=== PATIENT | female | born 1945 | race African-American/Black ===

== ENCOUNTER 2021-07-03 08:40 | Day surgery (SDC) | payer OTHER ==
--- NOTE | 2021-06-29 12:48 | RAD REPORT ---
EXAM DESCRIPTION: RAD - Chest Pa And Lat (2 Views) - 06/29/2021 12:41 pm CLINICAL HISTORY: Pre op COMPARISON: No comparisons FINDINGS: Lines: Left subclavian approach Port-A-Cath with tip overlying the SVC. Lungs: No evidence of edema or pneumonia. Pleural: No significant pleural effusions or pneumothorax. Cardiac: The heart size is within normal limits. Bones: No acute fractures. Bridging osteophytes in the spine. Other: IMPRESSION: No acute cardiopulmonary disease.
[2021-06-29 12:59] LABS: Hematocrit 42.5 % (36.0-45.0); Lymphocytes % 46.3 % (15.3-44.8); MPV 8.2 fL (7.6-11.3); RBC Red Blood Cell Count 5.27 M/uL (3.86-4.86)
[2021-06-29 13:10] LABS: Potassium 3.5 mmol/L (3.5-5.1)
[2021-06-29 13:50] LABS: Blood Morphology Comment NOT SEEN (NOT SEEN); Platelet Estimate ADEQ; White Blood Cell Scan OK (OK)
[~2021-07-03 08:40] MED LIST: CEFAZOLIN/SWI 2gm 2 GM/20 ML SYR IVP SCH
[2021-07-03] MEDS ORDERED: Ringers Lactate 1,000 ML IV ONE ×2 (08:51→10:47)
[2021-07-03] MEDS ORDERED: MIDAZOLAM HCL 2 MG/2 ML INJ ONE (09:13)
[2021-07-03] MEDS ORDERED: FENTANYL CITR 100 MCG/2 ML ONE (09:13)
[2021-07-03] MEDS ORDERED: LIDOCAINE 1% MPF 2 ML AMPULE ONE (09:14)
[2021-07-03] MEDS ORDERED: GLYCOPYRROLATE 0.2 MG/ML SYR ONE ×3 (09:14→11:10)
[2021-07-03] MEDS ORDERED: ROCURONIUM 50 MG/5 ML VIAL IV ONE (09:14)
[2021-07-03] MEDS ORDERED: propofoL 200 MG/20 ML VIAL IV ONE (09:14)
[2021-07-03] MEDS ORDERED: BUPIVACAINE 0.25% PF 10 ML VIAL ONE (09:31)
[2021-07-03] MEDS: CEFAZOLIN/SWI 2gm 2 GM/20 ML SYR ONE ×2 (10:00→10:21)
[2021-07-03] MEDS ORDERED: ONDANSETRON 4 MG/2 ML VIAL ONE (10:18)
[2021-07-03] MEDS ORDERED: NEOSTIGMINE 1 MG/ML -5 ML ONE (11:10)
[2021-07-03] MEDS ORDERED: KETOROLAC 30 MG/ML INJ ONE (11:12)
--- NOTE | 2021-07-03 11:16 | P.OP ---
Preoperative diagnosis: Multiple Incarcerated Ventral Abdominal Hernias Postoperative diagnosis: Multiple Incarcerated Ventral Abdominal Hernias Primary procedure: Laparoscopic Ventral Hernia Repair with mesh Secondary procedure: Adhesiolysis > 1 hour Anesthesia: GETA + Local Estimated blood loss: <10cc Specimen: Hernia Contents Findings: Multiple Incarcerated Ventral Abdominal Hernias Complications: None Implants: Bard Ventralite ST Mesh with echo position 15cm x 20cm Transferred to: Recovery Room Condition: Good
[2021-07-03] MEDS: MEPERIDINE HCL 25 MG/ML SYR ONE ×2 (11:48→11:56)
[2021-07-03] MEDS: MORPHINE 4 MG/ML SYR ONE ×2 (12:06→12:12)
[2021-07-03 12:09] VITALS: O2SAT 98
[2021-07-03 12:35] VITALS: BP 121/58; TEMP 96.6
[2021-07-03] MEDS ORDERED: HYDROCODONE/APAP 5/325 MG TAB ONE (12:56)
--- NOTE | 2021-07-03 18:56 | OP ---
Date of Procedure: 07/03/2021 Surgeon: Prasanth Celaya MD, Preoperative Diagnosis: Multiple incarcerated ventral abdominal hernias. Postoperative Diagnosis: Multiple incarcerated ventral abdominal hernias. Procedures Performed: 1.Laparoscopic ventral hernia repair with mesh. 2.Adhesiolysis greater than 1 hour. Anesthesia: General endotracheal plus local with 0.25% Marcaine. Estimated Blood Loss: Less than 10 mL. Specimens: Hernia contents. Findings: 1.Multiple incarcerated ventral abdominal hernias. 2.Hernias extended from the epigastric area, which had a Czech-cheese type appearance. Several corey ias were contiguous in this area. Then, there was a separate hernia in the umbilical position, signi ficant distance from the previous epigastric hernia. Complications: None. Implants: Bard Ventralight ST mesh with Echo Positioning System approximately 15 cm x 20 cm. Disposition: The patient was transferred to the recovery room in good condition. Procedure In Detail: After informed consent was obtained, the patient was brought to the operating r oom, prepped and draped in the usual sterile fashion after adequate anesthesia achieved. I anestheti zed the area of the left upper quadrant, sharply incised the skin, and a 5 mm 0-degree optical trocar was placed under direct visualization without evidence of complication. Two additional trocars were placed at this point, 1 in the left lower quadrant and 1 in the right mid abdomen. All these were p laced under direct visualization without evidence of complication. A total of 3 trocars were placed, two 5 mm trocars and one 12 mm trocar. After this was done, I used gentle traction, blunt dissectio n as well as LigaSure device to remove omentum from the epigastric ventral hernia, which was incarcer ated and entrapped at this time. After this was reduced, I then turned my attention to the umbilical hernia, which was also similarly entrapped. This also required combination to remove the preperiton eal contents at this point. After this preperitoneal fat and hernia contents were removed, they were placed in EndoCatch bag, removed through the 12 mm trocar and sent off for pathologic examination. At this point, then I sized the mesh appropriately, found a 15 cm x 20 cm mesh to be appropriate size and brought the balloon deployment system onto the field, deployed the mesh intraperitoneal, centeri ng the mesh between the 2 hernia defects/hernia regions. I then deployed the mesh. At this point, t he absorbable fixation tacking system was used to circumferentially place a single crown at this poin t. The balloon deployment system was then removed. The abdomen was desufflated to 12 mmHg and the b alloon deployment system was checked on the back table and found to be intact. At this point, I plac ed approximately 135 tacks circumferentially in a double crown type fashion to secure the mesh to the anterior abdominal wall with good apposition of the mesh to the abdominal wall. At this point, I th en removed the 12 mm trocar from the left lower quadrant and irrigated the area and closed this with a Jr-Doroteo suture passer with a 0 Vicryl in interrupted fashion with good approximation of tis sues. I then desufflated the abdomen under direct visualization without evidence of complication, re moved all the remaining 2 trocars at this point. At this point, all skin incisions were copiously ir rigated and closed with a 4-0 Monocryl in a running fashion. Dermabond placed over top. The patient tolerated the procedure well without evidence of complication and transferred to PACU in good condit ion. All counts were correct at the end of the case. ALEX/YOUSUF Voice ID: [id number] Report ID: [id number]
== END 2021-07-03 13:16 | disposition home or self-care (01) ==
LOC: OR 08:40
PROVIDERS: ATTEND Surgery
PROC: 0DNU4ZZ Release Omentum, Percutaneous Endoscopic Approach (ICD-10-PCS; 2021-07-03)
PROC: 0WUF4JZ Supplement Abdominal Wall with Synthetic Substitute, Percutaneous Endoscopic Approach (ICD-10-PCS; principal; 2021-07-03 11:00)
DX: K43.6 Other and unspecified ventral hernia with obstruction, without gangrene (principal); Z20.822 Contact with and (suspected) exposure to COVID-19
CPT/HCPCS: 93005; 85025; 80048; 36415; 88302; 71046; 49653; 49329; U0003; J2704; J2250; J3010; J2175; J2710; J0690; J7120 ×2; J2405

== ENCOUNTER 2023-02-15 12:49 | Emergency (ER) | payer OTHER ==
--- OUTSIDE RECORDS SUMMARY | 2023-02-15 12:52 | XMS REPORT | Continuity of Care Document ---
:1945 Author Organization [facility] t Address [address] [place] [address] [address] [place] [address] Care Team Providers Name Role Phone DANIE SANTAMARIA Attending Clinician Unavailable Luis Lyn Attending Clinician Payers Payer Name Policy Type Policy Number Effective Date Expiration Date Ting shelton [employer] MEDICARE [id number] 2016 COMPLETE 00:00:00 Problems Condition Condition Condition Status Onset Resolution Last Treating Co mments Source Name Details Category Date Date Treatment Clinician Date Cellulitis Cellulitis Disease Active U nivers 4-17 ity of 00:00: [address] Allergies, Adverse Reactions, Alerts Allergy Allergy Status Severity Reaction(s) Onset Inactive Treating Comm ents Source Name Type Date Date Clinician Hydrocod Propensi Active Other - See Upset U nivers one ty to comments 7 stomach ity of adverse 00:00: [place] reaction [address] [place] [address] HYDROCOD DRUG Active Other-Cmnt Univ ers ONE INGREDI 7-17 ity of 00:00: [address] Social History Social Habit Start Date Stop Date Quantity Comments Source Alcohol intake [facility] Smoking Status Start Date Stop Date Source Never smoker [facility] Medications Ordered Filled Start Stop Current Ordering Indication Dosage Frequency Signature Comments Components Source Medication Medication Date Date Medication? Clinician (SIG) Name Name aspirin Yes [id number] 81mg Take 81 mg Univers (ASPIR-81) 7-17 by mouth ity o f 81 mg EC 19:29: daily. [place] tablet 40 [facility] amLODIPine Yes 10mg Take 10 mg U nivers (NORVASC) 7-17 by mouth ity of 10 mg 19:29: daily. [place] tablet 40 [facility] aspirin Yes [id number] 81mg Take 81 mg Univers (ASPIR-81) 7-17 by mouth ity o f 81 mg EC 19:29: daily. [place] tablet 40 [facility] amLODIPine Yes 10mg Take 10 mg U nivers (NORVASC) 7-17 by mouth ity of 10 mg 19:29: daily. [place] tablet 40 [facility] aspirin Yes [id number] 81mg Take 81 mg Univers (ASPIR-81) 7-17 by mouth ity o f 81 mg EC 19:29: daily. [place] tablet 40 Medical [facility] amLODIPine Yes 10mg Take 10 mg U nivers (NORVASC) 7-17 by mouth ity of 10 mg 19:29: daily. [place] tablet 40 [facility] aspirin Yes [id number] 81mg Take 81 mg Univers (ASPIR-81) 7-17 by mouth ity o f 81 mg EC 19:29: daily. [place] tablet 40 [facility] Branch amLODIPine Yes 10mg Take 10 mg U nivers (NORVASC) 7-17 by mouth ity of 10 mg 19:29: daily. [place] tablet 40 [facility] aspirin Yes [id number] 81mg Take 81 mg Univers (ASPIR-81) 7-17 by mouth ity o f 81 mg EC 19:29: daily. [place] tablet 40 [facility] amLODIPine 0 Yes 10mg Take 10 mg U nivers (NORVASC) 7-17 by mouth ity of 10 mg 19:29: daily. [place] tablet 40 [facility] aspirin 2018- Yes [id number] 81mg Take 81 mg Univers (ASPIR-81) 7-17 by mouth ity o f 81 mg EC 19:29: daily. [place] tablet 40 Medical Branch amLODIPine 2018-0 Yes 10mg Take 10 mg U nivers (NORVASC) 7-17 by mouth ity of 10 mg 19:29: daily. [place] tablet 40 [facility] aspirin 2019-0 Yes [id number] 81mg Take 81 mg Univers (ASPIR-81) 7-17 by mouth ity o f 81 mg EC 19:29: daily. [place] tablet 40 Medical Branch amLODIPine 2019-0 Yes 10mg Take 10 mg U nivers (NORVASC) 7-17 by mouth ity of 10 mg 19:29: daily. [place] tablet 40 Medical [facility] aspirin 2018-0 Yes [id number] 81mg Take 81 mg Univers (ASPIR-81) 7-17 by mouth ity o f 81 mg EC 19:29: daily. [place] tablet 40 Medical Branch amLODIPine 2018-0 Yes 10mg Take 10 mg U nivers (NORVASC) 7-17 by mouth ity of 10 mg 19:29: daily. [place] tablet 40 Medical Branch traMADOL 50 2018-0 Yes [id number] 50mg Take 1 Univers mg tablet 7-09 tablet by ity o f 00:00: mouth [place] 00 every 6 Medical (six) Branch hours as needed for Pain (scale 7-10). traMADOL 50 2018-0 Yes [id number] 50mg Take 1 Univers mg tablet 7-09 tablet by ity o f 00:00: mouth [place] 00 every 6 Medical (six) Branch hours as needed for Pain (scale 4-6). traMADOL 50 2018-0 Yes [id number] 50mg Take 1 Univers mg tablet 7-09 tablet by ity o f 00:00: mouth [place] 00 every 6 Medical (six) Branch hours as needed for Pain (scale 7-10). traMADOL 50 2018-0 Yes [id number] 50mg Take 1 Univers mg tablet 7-09 tablet by ity o f 00:00: mouth [place] 00 every 6 Medical (six) Branch hours as needed for Pain (scale 4-6). traMADOL 50 2018-0 Yes [id number] 50mg Take 1 Univers mg tablet 7-09 tablet by ity o f 00:00: mouth [place] 00 every 6 Medical (six) Branch hours as needed for Pain (scale 7-10). traMADOL 50 2018-0 Yes [id number] 50mg Take 1 Univers mg tablet 7-09 tablet by ity o f 00:00: mouth [place] 00 every 6 Medical (six) Branch hours as needed for Pain (scale 4-6). traMADOL 50 2019-0 Yes [id number] 50mg Take 1 Univers mg tablet 7-09 tablet by ity o f 00:00: mouth [place] 00 every 6 Medical (six) Branch hours as needed for Pain (scale 7-10). traMADOL 50 2019-0 Yes [id number] 50mg Take 1 Univers mg tablet 7-09 tablet by ity o f 00:00: mouth [place] 00 every 6 Medical (six) Branch hours as needed for Pain (scale 4-6). traMADOL 50 2019-0 Yes [id number] 50mg Take 1 Univers mg tablet 7-09 tablet by ity o f 00:00: mouth [place] 00 every 6 Medical (six) Branch hours as needed for Pain (scale 7-10). traMADOL 50 2019-0 Yes [id number] 50mg Take 1 Univers mg tablet 7-09 tablet by ity o f 00:00: mouth [place] 00 every 6 Medical (six) Branch hours as needed for Pain (scale 4-6). traMADOL 50 2018-0 Yes [id number] 50mg Take 1 Univers mg tablet 7-09 tablet by ity o f 00:00: mouth [place] 00 every 6 Medical (six) Branch hours as needed for Pain (scale 7-10). traMADOL 50 2019-0 Yes [id number] 50mg Take 1 Univers mg tablet 7-09 tablet by ity o f 00:00: mouth [place] 00 every 6 Medical (six) Branch hours as needed for Pain (scale 4-6). traMADOL 50 2019-0 Yes [id number] 50mg Take 1 Univers mg tablet 7-09 tablet by ity o f 00:00: mouth [place] 00 every 6 Medical (six) Branch hours as needed for Pain (scale 7-10). traMADOL 50 2019-0 Yes [id number] 50mg Take 1 Univers mg tablet 7-09 tablet by ity o f 00:00: mouth [place] 00 every 6 Medical (six) Branch hours as needed for Pain (scale 4-6). traMADOL 50 2019-0 Yes [id number] 50mg Take 1 Univers mg tablet 7-09 tablet by ity o f 00:00: mouth [place] 00 every 6 Medical (six) Branch hours as needed for Pain (scale 7-10). traMADOL 50 2019-0 Yes [id number] 50mg Take 1 Univers mg tablet 7-09 tablet by itrhianna o f 00:00: mouth [place] [address] every 6 Medical (six) Branch hours as needed for Pain (scale 4-6). Immunizations Ordered Filled Immunization Date Status Comments [facility] e Immunization Name Name Influenza Virus 2015-10-27 Completed Universit y of Vaccine Quad IM 3+ 00:00:00 [facility] Pneumococcal 2015-10-27 Completed University o f Polysaccharide, 00:00:00 [place] [facility] PPSV23 (PNEUMOVAX) Branch Influenza Virus 2015-10-27 Completed Universit y of Vaccine Quad IM 3+ 00:00:00 [facility] Pneumococcal 2015-10-27 Completed University o f Polysaccharide, 00:00:00 [place] [facility] PPSV23 (PNEUMOVAX) Branch Influenza Virus 2015-10-27 Completed Universit y of Vaccine Quad IM 3+ 00:00:00 [facility] Pneumococcal 2015-10-27 Completed University o f Polysaccharide, 00:00:00 [place] [facility] PPSV23 (PNEUMOVAX) Branch Influenza Virus 2015-10-27 Completed Universit y of Vaccine Quad IM 3+ 00:00:00 [facility] Pneumococcal 2015-10-27 Completed University o f Polysaccharide, 00:00:00 [place] [facility] PPSV23 (PNEUMOVAX) Branch Influenza Virus 2015-10-27 Completed Universit y of Vaccine Quad IM 3+ 00:00:00 [facility] Pneumococcal 2015-10-27 Completed University o f Polysaccharide, 00:00:00 [place] [facility] PPSV23 (PNEUMOVAX) Branch Influenza Virus 2015-10-27 Completed Universit y of Vaccine Quad IM 3+ 00:00:00 [facility] Pneumococcal 2015-10-27 Completed University o f Polysaccharide, 00:00:00 [place] [facility] PPSV23 (PNEUMOVAX) Branch Influenza Virus 2015-10-27 Completed Universit y of Vaccine Quad IM 3+ 00:00:00 [facility] Pneumococcal 2015-10-27 Completed University o f Polysaccharide, 00:00:00 [place] [facility] PPSV23 (PNEUMOVAX) Branch Influenza Virus 2015-10-27 Completed Universit y of Vaccine Quad IM 3+ 00:00:00 [facility] Pneumococcal 2015-10-27 Completed University o f Polysaccharide, 00:00:00 [place] [facility] PPSV23 (PNEUMOVAX) Branch Vital Signs Vital Name Observation Time Observation Value Comments Source Systolic blood 2019-02-25 19:22:00 149 mm[Hg] Univer sity of pressure [place] [facility] Diastolic blood 2019-02-25 19:22:00 79 mm[Hg] Unive rsity of pressure [place] [facility] Heart rate 2019-02-25 19:22:00 76 /min [facility] [place] [facility] Respiratory rate 2019-02-25 19:22:00 18 /min Univ ers[facility] [place] [facility] Body height 2019-02-25 19:22:00 172.7 cm [facility] [place] [facility] Body weight 2019-02-25 19:22:00 92.08 kg [facility] [place] [facility] BMI 2019-02-25 19:22:00 30.87 kg/m2 [facility] [place] [facility] Systolic blood 2019-02-25 19:22:00 149 mm[Hg] Univer sity of pressure [place] [facility] Diastolic blood 2019-02-25 19:22:00 79 mm[Hg] Unive rsity of pressure [place] [facility] Heart rate 2019-02-25 19:22:00 76 /min [facility] [place] [facility] Respiratory rate 2019-02-25 19:22:00 18 /min Univ ers[facility] [place] [facility] Body height 2019-02-25 19:22:00 172.7 cm [facility] [place] [facility] Body weight 2019-02-25 19:22:00 92.08 kg [facility] [place] [facility] BMI 2019-02-25 19:22:00 30.87 kg/m2 [facility] [place] [facility] Systolic blood 2019-02-04 19:13:00 154 mm[Hg] Univer sity of pressure [place] [facility] Diastolic blood 2019-02-04 19:13:00 73 mm[Hg] Unive rsity of pressure [place] [facility] Heart rate 2019-02-04 19:13:00 73 /min [facility] [place] [facility] Respiratory rate 2019-02-04 19:08:00 18 /min Univ ers[facility] [place] [facility] Body height 2019-02-04 19:08:00 172.7 cm [facility] [place] [facility] Body weight 2019-02-04 19:08:00 92.08 kg [facility] [place] [facility] BMI 2019-02-04 19:08:00 30.87 kg/m2 [facility] [place] [facility] Procedures Procedure Date / Time Performed Performing Clinician Catrachito e XR WRIST <3 VW RIGHT 2019-02-25 19:46:13 Luis Echeverria [facility] ity [facility] XR ELBOW >3 VW RIGHT 2019-02-04 19:18:19 Luis Echeverria Univers ity [facility] XR WRIST <3 VW RIGHT 2019-02-04 19:14:05 Luis Echeverria [facility] Encounters Start End Encounter Admission Attending Care Care Encounter Source Date/Time Date/Time Type Type Clinicians Facility Department ID 2020-08-15 2020-08-15 Outpatient Angel SANTAMARIA [facility] [id number] [facility] 18:40:00 18:40:00 DANIE [facility] 2019-02-25 2019-02-25 [facility] [id number] 14:46:13 23:59:00 Encounter Luis [facility] [id number] Surgical [id number] Specialti [id number] es [address] [place] [address] 2019-02-25 2019-02-25 [facility] [id number] [facility] 14:46:13 23:59:00 Encounter Luis Maguire Health [id number] ity of Surgical [id number] Sebastian as Specialti [id number] Az dical es 809 [facility] 2019-02-25 2019-02-25 Office [facility] [id number] 14:10:57 14:25:57 Visit Luis S Health [id number] Surgical [id number] Specialti [id number] es [address] [place] 2019-02-25 2019-02-25 Office [facility] [id number] [place] [address] 14:10:57 14:25:57 Visit Luis Maguire Health [id number] it y of Surgical [id number] Sebastian as Specialti [id number] Az dical es 198 [facility] 2019-02-04 2019-02-04 [facility] [id number] [place] [address] 14:18:19 23:59:00 Encounter Luis Weiss [id number] ity of Surgical [id number] Sebastian as Specialti [id number] Az dical es [address] [place] 2019-02-04 2019-02-04 [facility] [id number] [facility] 14:06:52 14:33:05 Visit Luis Weiss [id number] it y of Surgical [id number] Sebastian as Specialti [id number] Az dical es 198 [facility] 2019-02-04 2019-02-04 [facility] [id number] [facility] 14:14:04 14:17:00 Encounter Luis Weiss [id number] ity of Surgical [id number] Sebastian as Specialti [id number] Az dical es 809 [facility] Results Test Description Test Time Test Comments Results Result [facility] e Comments XR WRIST <3 VW 2019-02-25 Right wrist no Univer sity of RIGHT 20:12:05 signs of fracture [place] [facility] or dislocation, Branch elbow and the radial neck fracture she'll so some lucency but is in a normal alignment and there are some signs of healing XR WRIST <3 VW 2019-02-04 No sign of University of RIGHT 19:29:57 fracture or [place] [facility] dislocation Branch XR ELBOW >3 VW 2019-02-04 Radial neck Universit y of RIGHT 19:29:04 fracture [place] [facility] nondisplaced Branch normal alignment between the radial head and capitellum
[2023-02-15] MEDS ORDERED: MORPHINE 4 MG/ML SYR ONE (14:00)
[2023-02-15] MEDS ORDERED: ONDANSETRON 4 MG/2 ML VIAL ONE (14:00)
[2023-02-15 15:49] LABS: Absolute Lymphocytes (CBC) 1.3 K/uL (0.7-4.9); Hematocrit 39.3 % (36.0-45.0); Lymphocytes % 19.4 % (15.3-44.8); MCV 80.1 fL (80-100); MPV 8.2 fL (7.6-11.3); Platelets 308 thou/uL (152-406)
[2023-02-15 16:11] LABS: Albumin 3.7 g/dL (3.4-5.0); Bilirubin Total 0.4 mg/dL (0.2-1.0); Potassium 3.5 mEq/L (3.5-5.1); Protein, Total 8.8 g/dL (6.4-8.2)
--- NOTE | 2023-02-15 16:46 | RAD REPORT ---
EXAM DESCRIPTION: CTAbdomen Pelvis W Contrast - 02/15/2023 4:38 pm CLINICAL HISTORY: Abdominal pain. FLANK PAIN COMPARISON: <Comparisons> TECHNIQUE: Biphasic CT imaging of the abdomen and pelvis was performed with 100 ml non-ionic IV cont rast. All CT scans are performed using dose optimization technique as appropriate and may include automated exposure control or mA/KV adjustment according to patient size. FINDINGS: The lung bases are clear.Small hiatal hernia. The liver, spleen, pancreas, adrenal glands and kidneys are within normal limits. No bowel obstruction, free air, free fluid or abscess. The appendix is normal. No evidence of signi ficant lymphadenopathy. 5 cm calcification is seen posterior right pelvis. Mild lower lumbar degenerative changes. IMPRESSION: No acute intra-abdominal or pelvic finding.
[2023-02-15 17:07] LABS: Specific Gravity > 1.030 (1.005-1.030); Urine Bacteria None Seen /HPF (<20); Urine Bilirubin NEGATIVE (Negative); Urine Blood Negative (Negative); Urine Clarity Extremely Turbid (Clear); Urine Color Yellow (Yellow); Urine Glucose TRACE (Negative); Urine Mucus Slight /HPF (None Seen); Urine Protein TRACE (Negative); Urine Urobilinogen Normal (Normal); Urine WBC Clump Rare /HPF (None Seen); Urine pH 5.5 (5.0-7.0)
--- NOTE | 2023-02-15 17:18 | EDPHYS ---
Physician Documentation [facility] Name: Arianna Soto Age: 77 yrs Sex: Female : 1945 Arrival Date: 02/15/2023 Time: 12:49 Bed 17 Private MD: Herman Zhang E ED Physician Peewee Martinez HPI: 02/15 13:43 This 77 yrs old Black Female presents to ER via Ambulatory with complaints of Flank rt Pain. 13:43 Patient presents to the ED with an intermittent flank pain since Saturday. The pain rt has worsened today, sharp in nature, localized to the right flank radiating downwards. Patient denies any injury. Patient does report nausea without vomiting. Denies any urinary or bowel symptoms. Denies other acute complaints at this time. Symptoms are moderate severity, aching nature, not otherwise radiating, no other aggravating alleviating factors.. Historical: - Allergies: 12:57 No Known Allergies; nj1 - PMHx: 12:57 Hypertensive disorder; Hypercholesterolemia; Hx of breast cancer; nj1 - PSHx: 12:57 Mastectomy, right breast; nj1 - Immunization history:: Client reports receiving the 2nd dose of the Covid vaccine. - Social history:: Smoking status: Patient denies any tobacco usage or history of. - Family history:: not pertinent. ROS: 13:43 Constitutional: Negative for fever, chills, and weight loss, Cardiovascular: Negative rt for chest pain, palpitations, and edema, Respiratory: Negative for shortness of breath, cough, wheezing, and pleuritic chest pain, MS/Extremity: Negative for injury and deformity, Skin: Negative for injury, rash, and discoloration, Neuro: Negative for headache, weakness, numbness, tingling, and seizure, Psych: Negative for depression, anxiety, suicide ideation, homicidal ideation, and hallucinations. 13:43 Abdomen/GI: Positive for nausea, Negative for vomiting. 13:43 Back: Positive for pain at rest, pain with movement, flank pain. Exam: 13:43 Constitutional: This is a well developed, well nourished patient who is awake, alert, rt and in no acute distress. Head/Face: Normocephalic, atraumatic. Chest/axilla: Normal chest wall appearance and motion. Nontender with no deformity. No lesions are appreciated. Cardiovascular: Regular rate and rhythm with a normal S1 and S2. No gallops, murmurs, or rubs. Normal PMI, no JVD. No pulse deficits. Respiratory: Lungs have equal breath sounds bilaterally, clear to auscultation and percussion. No rales, rhonchi or wheezes noted. No increased work of breathing, no retractions or nasal flaring. Abdomen/GI: Soft, non-tender, with normal bowel sounds. No distension or tympany. No guarding or rebound. No evidence of tenderness throughout. Skin: Warm, dry with normal turgor. Normal color with no rashes, no lesions, and no evidence of cellulitis. MS/ Extremity: Pulses equal, no cyanosis. Neurovascular intact. Full, normal range of motion. Neuro: Awake and alert, GCS 15, oriented to person, place, time, and situation. Cranial nerves II-XII grossly intact. Motor strength 5/5 in all extremities. Sensory grossly intact. Cerebellar exam normal. Normal gait. Psych: Awake, alert, with orientation to person, place and time. Behavior, mood, and affect are within normal limits. 13:43 Back: Right costovertebral angle tenderness is present, right-sided paraspinal tenderness is noted down through the lower lumbar region, no midline tenderness, no step-offs. Vital Signs: 12:55 BP 135 / 72; Pulse 76; Resp 16; Pulse Ox 100% on R/A; Weight 91.17 kg; Height 5 ft. 7 nj1 in. ; Pain 8/10; 14:22 BP 131 / 70; Pulse 73; Pulse Ox 98% on R/A; ap3 14:43 BP 107 / 78; Pulse 66; Pulse Ox 98% on R/A; ap3 12:55 Body Mass Index 31.48 (91.17 kg, 170.18 cm) nj1 12:55 Pain Scale: Adult nj1 MDM: 13:12 Patient medically screened. rt 17:37 Differential diagnosis: Nephrolithiasis, pyelonephritis, mechanical back pain. Data rt reviewed: vital signs, nurses notes, lab test result(s), radiologic studies. Consideration of Admission/Observation Escalation of care including admission/observation considered. Patient meets no clinical indicators for sepsis, symptoms significantly improving with pain medications in the ED, does not require admission at this time. I considered the following discharge prescriptions or medication management in the emergency department Medications were administered in the Emergency Department. See MAR. Independent interpretation of the following test(s) in the Emergency Department CT Scan: My interpretation is No ureterolithiasis seen on interpretation of the CT scan images. Care significantly affected by the following chronic conditions: Hypertension. Counseling: I had a detailed discussion with the patient and/or guardian regarding: the historical points, exam findings, and any diagnostic results supporting the discharge/admit diagnosis, lab results, radiology results, the need for outpatient follow up, to return to the emergency department if symptoms worsen or persist or if there are any questions or concerns that arise at home. Response to treatment: the patient's symptoms have markedly improved after treatment. ED course: Urinalysis equivocal for UTI, will treat, will send for urine culture. 02/15 13:20 Order name: CBC with Diff; Complete Time: 15:56 rt 02/15 13:20 Order name: CMP; Complete Time: 16:30 rt 02/15 13:20 Order name: Lipase; Complete Time: 16:30 rt 02/15 13:20 Order name: Urinalysis w/ reflexes; Complete Time: 17:36 rt 02/15 17:13 Order name: Urine Culture EDMS 02/15 13:20 Order name: CT Abd/Pelvis - IV Contrast Only; Complete Time: 16:51 rt 02/15 13:20 Order name: IV Saline Lock; Complete Time: 13:47 rt 02/15 13:20 Order name: Labs collected and sent; Complete Time: 13:47 rt 02/15 14:06 Order name: Labs - recollect needed: recollect all the labs/ all hemolyzed per mechelle Reynolds; Complete Time: 16:20 Administered Medications: 13:58 Drug: Ondansetron IVP 4 mg Route: IVP; Site: left forearm; ap3 14:22 Follow up: Response: No adverse reaction; Nausea is decreased ap3 13:58 Drug: morphine IVP or IV 4 mg Route: IVP; Infused Over: 4 mins; Site: left forearm; ap3 14:22 Follow up: Response: No adverse reaction; Pain is decreased ap3 Disposition Summary: 02/15/23 17:18 Discharge Ordered Location: Home rt Problem: new rt Symptoms: have improved rt Condition: Stable rt Diagnosis - UTI/ Urinary tract infection, site not specified rt - Low back pain rt Followup: rt - With: Private Physician - When: 2 - 3 days - Reason: Discharge Instructions: - Discharge Summary Sheet rt - Acute Back Pain, Adult rt - Urinary Tract Infection, Adult rt Forms: - Medication Reconciliation Form rt - Thank You Letter rt - Antibiotic Education rt - Prescription Opioid Use rt - Patient Portal Instructions rt - Leadership Thank You Letter rt Prescriptions: - acetaminophen-codeine 300-30 mg Oral tablet - take 1 tablet by ORAL route every 4 to 6 hours as needed for pain; 15 tablet; rt Refills: 0, Product Selection Permitted - ondansetron 4 mg Oral Tablet,disintegrating - take 1 tablet by ORAL route every 6 hours for 5 days; 18 tablet; Refills: 0, rt Product Selection Permitted - Fluconazole 200 mg Oral Tablet - take 1 tablet by ORAL route once wkly; 2 tablet; Refills: 0, Product Selection rt Permitted - cefpodoxime 200 mg Oral Tablet - take 1 tablet by ORAL route every 12 hours with food; 20 tablet; Refills: 0, rt Product Selection Permitted Signatures: Dispatcher [employer] Renu Machado RN RN [email or web address] Angelina Barahona Ryan, MD MD rt Samantha Rivera RN RN nj1 Corrections: (The following items were deleted from the chart) 13:00 12:57 PMHx: Mastectomy, right breast; nj1 nj1
--- NOTE | 2023-02-15 17:18 | ER ---
Nurse's Notes [facility] Name: Arianna Soto Age: 77 yrs Sex: Female : 1945 Arrival Date: 02/15/2023 Time: 12:49 Bed 17 Private MD: Herman Zhang E Diagnosis: UTI/ Urinary tract infection, site not specified;Low back pain Presentation: 02/15 12:55 Chief complaint: Patient states: Right flank pain, first noticed Saturday but got nj1 worse yesterday. Slightly nauseous today. Coronavirus screen: Vaccine status: Patient reports receiving the 2nd dose of the covid vaccine. Ebola Screen: Patient denies travel to an Ebola-affected area in the 21 days before illness onset. Initial Sepsis Screen: Does the patient meet any 2 criteria? No. Patient's initial sepsis screen is negative. Does the patient have a suspected source of infection? No. Patient's initial sepsis screen is negative. Risk Assessment: Do you want to hurt yourself or someone else? Patient reports no desire to harm self or others. Onset of symptoms was February 13, 2023. 12:55 Method Of Arrival: Ambulatory [facility] [place] 12:55 Acuity: SHELDON 3 nj1 Triage Assessment: 17:37 General: Appears in no apparent distress. Behavior is calm, cooperative, appropriate ap3 for age. Pain: Complains of pain in abdomen. Neuro: Level of Consciousness is awake, alert, obeys commands, Oriented to person, place, time, situation. Cardiovascular: Patient's skin is warm and dry. Respiratory: Airway is patent Respiratory effort is even, unlabored, Respiratory pattern is regular, symmetrical. Historical: - Allergies: 12:57 No Known Allergies; nj1 - PMHx: 12:57 Hypertensive disorder; Hypercholesterolemia; Hx of breast cancer; nj1 - PSHx: 12:57 Mastectomy, right breast; nj1 - Immunization history:: Client reports receiving the 2nd dose of the Covid vaccine. - Social history:: Smoking status: Patient denies any tobacco usage or history of. - Family history:: not pertinent. Screenin:07 [facility] ED Fall Risk Assessment (Adult) History of falling in the last 3 months, ap3 including since admission No falls in past 3 months (0 pts). Abuse screen: Denies threats or abuse. Nutritional screening: No deficits noted. Tuberculosis screening: No symptoms or risk factors identified. Assessment: 13:19 Reassessment: OK to have ice chips per Dr. Martinez. ap3 14:20 General: lab contacted for recollection. ap3 15:01 General: Lab at bedside for recollection. ap3 Vital Signs: 12:55 BP 135 / 72; Pulse 76; Resp 16; Pulse Ox 100% on R/A; Weight 91.17 kg; Height 5 ft. 7 nj1 in. ; Pain 8/10; 14:22 BP 131 / 70; Pulse 73; Pulse Ox 98% on R/A; ap3 14:43 BP 107 / 78; Pulse 66; Pulse Ox 98% on R/A; ap3 12:55 Body Mass Index 31.48 (91.17 kg, 170.18 cm) nj1 12:55 Pain Scale: Adult nj1 ED Course: 12:50 Patient arrived in ED. rg4 12:51 Herman Zhang MD is Private Physician. rg4 12:54 Peewee Martinez MD is Attending Physician. rt 12:57 Triage completed. nj1 13:00 Arm band placed on right wrist. nj1 13:07 Renu Mandujano, ANNIKA is Primary Nurse. ap3 14:56 Radiology exam delayed due to lab results not completed at this time. (BUN/Creatinine). ls3 16:40 CT Abd/Pelvis - IV Contrast Only In Process Unspecified. EDMS 16:56 Urine collected: clean catch specimen, clear. tm3 17:14 ED physician to see patient. ap3 17:38 Patient has correct armband on for positive identification. Bed in low position. Call ap3 light in reach. Side rails up X 1. Pulse ox on. NIBP on. Door closed. Noise minimized. 17:38 Provided Education on: discharge instructions. ap3 17:38 No provider procedures requiring assistance completed. IV discontinued, intact, ap3 bleeding controlled, No redness/swelling at site. Pressure dressing applied. Administered Medications: 13:58 Drug: Ondansetron IVP 4 mg Route: IVP; Site: left forearm; ap3 14:22 Follow up: Response: No adverse reaction; Nausea is decreased ap3 13:58 Drug: morphine IVP or IV 4 mg Route: IVP; Infused Over: 4 mins; Site: left forearm; ap3 14:22 Follow up: Response: No adverse reaction; Pain is decreased ap3 Medication: 17:38 VIS not applicable for this client. ap3 Outcome: 17:18 Discharge ordered by . rt 17:38 Discharged to home ambulatory. ap3 17:38 Condition: good 17:38 Discharge instructions given to patient, Instructed on discharge instructions, follow up and referral plans. medication usage, Demonstrated understanding of instructions, follow-up care, medications, Prescriptions given X 4. 17:39 Patient left the ED. ap3 Signatures: Dispatcher [employer] EDMS Leonardo Falk tm3 Merry Mandujano rg4 Renu Mandujano RN RN ap3 Catherine Boudreaux ls3 Peewee Martinez MD MD rt Samantha Rivera RN RN nj1 Corrections: (The following items were deleted from the chart) 13:00 12:57 PMHx: Mastectomy, right breast; nj1 nj1
[2023-02-15 17:45] VITALS: O2SAT 98
[2023-02-15 17:47] VITALS: BP 107/78
== END 2023-02-15 17:39 | disposition home or self-care (01) ==
LOC: ER 12:49
DX: N39.0 Urinary tract infection, site not specified (principal); I10 Essential (primary) hypertension; Z85.3 Personal history of malignant neoplasm of breast; Z90.11 Acquired absence of right breast and nipple
CPT/HCPCS: 87088; 85025; 81001; 87086; 36415; 83690; 80053; 74177; 96375; 96374; 99284; Q9967; J2405